=== PATIENT | female | born 2000 ===

== ENCOUNTER 2025-05-15 10:04 | Emergency (ER) | payer OTHER, SELFPAY ==
--- NOTE | ~2025-05-15 | XR_ITS ---
EXAMINATION: XR FOOT, RIGHT CLINICAL INFORMATION: pain, fall COMPARISON: None available. TECHNIQUE: AP, lateral, and oblique views of the right foot. FINDINGS: On the oblique view, avulsion fracture of the dorsal to the head neck junction is demonstrated. No other abnormalities are evident. XR/XR foot RT min 3V IMPRESSION: Dorsal talonavicular ligament avulsion fracture involving dorsal to the head neck junction. Electronically signed by: Martinez Orourke MD 05/15/2025 11:40 AM EDT
--- NOTE | ~2025-05-15 | XR_ITS ---
EXAMINATION: XR ANKLE, right CLINICAL INFORMATION: Right ankle pain, fall down stairs one day ago COMPARISON: None available. TECHNIQUE: AP, lateral, and mortise views lower extremity joint, ankle. FINDINGS: Ankle mortise is congruent. There is no widening of the syndesmosis. Talar dome is intact. There are no calcaneal enthesophytes. Small linear avulsion fracture is noted involving the dorsal and neck junction of talus. XR/XR ankle RT min 3V IMPRESSION: Midtarsal/Chopart joint sprain. Small avulsion fracture is noted involving the talar footprint of the dorsal talonavicular ligament. Electronically signed by: Martinez Orourke MD 05/15/2025 11:38 AM EDT
[2025-05-15 10:48] VITALS: BP 113/77; PULSE 95; RESP 16; TEMP 36.4; O2SAT 100; BMI 29.3
--- NOTE | 2025-05-15 10:52 | ED_ITS ---
HPI - Extremity Injury (Lower) General Chief Complaint: Extremity Injury, Lower Stated Complaint: Pt states foot might be broken Time Seen by Provider: 05/15/25 11:44 Source: patient Mode of arrival: wheelchair Limitations: no limitations History of Present Illness ED Provider: Yareli Stanley PA-C HPI Narrative: Patient is a 25 year old assigned female at with no reported medical hi story presenting to the emergency department today with right ankle pain. Patient states that last night she fell down a couple of steps and has had right ankle pain since. Patient denies any dizziness, lightheadedness, abdominal pain, nausea, vomiting, fever, chills, blurry vision, double vision, loss of vision, chest pain, difficulty breathing, shortness of breath, back pain, night sweats, pain with urination, increased urinary frequency, increased urinary urgency, blood in her urine or stool, syncope or a near syncopal episode, bowel incontinence, bladder incontinence, or any other complaints at this time. Related Data Allergies Allergy/AdvReac Type Severity Reaction Status Date / Time No Known Allergies Allergy Verified 05/15/25 10:50 Review of Systems Constitutional: Constitutional: Reports no additional constitutional complaints, Denies chills, Denies fever(s) and Denies night sweats Eyes: Eyes: Reports no additional eye complaints, Denies blurry vision, Denies change in vision, Denies diplopia, Denies eye discharge, Denies loss of vision and Denies eye pain ENT: Denies dizziness Cardiovascular: Cardiovascular: Reports no additional cardiovascular complaints, Denies chest pain, Denies lightheadedness, Denies Loss of Consciousness and Denies dyspnea Respiratory: Respiratory: Reports no additional respiratory complaints and Denies dyspnea Gastrointestinal: Gastrointestinal: Reports no additional gastrointestinal complaints, Denies abdominal pain, Denies melena, Denies hematochezia, Denies change in bowel habits and Denies change in stool character Genitourinary: Genitourinary: Denies hematuria, Denies urinary frequency, Denies dysuria, Denies urinary incontinence, Denies urinary hesitancy and Denies urinary urgency Musculoskeletal: Musculoskeletal: Reports no additional musculoskeletal complaints, Denies numbness and Denies tingling Comments: Right ankle pain Neurologic: Denies dizziness, Denies loss of vision, Denies numbness and Denies tingling Psychiatric: Psychiatric: Reports no additional psychiatric complaints Endocrine: Endocrine: Reports no additional endocrine complaints Hematologic/Lymphatic: Hematologic/Lymphatic: Reports no additional hematologic/lymphatic complaints Allergic/Immunologic: Allergic/Immunologic: Reports no additional allergic/immunologic complaints PMFSH Past Medical History Attestation statement: The following information was validated with the patient. Source: old records reviewed and nursing notes reviewed Social History Social History Advance Directives: No Advance Directives Information Provided: Yes Physical Exam Vital Signs: Vital Signs: Last Vital Signs Temp 97.6 F 05/15/25 10:48 Pulse 95 05/15/25 10:48 Resp 16 05/15/25 10:48 BP 113/77 05/15/25 10:48 Pulse Ox 100 05/15/25 10:48 O2 Del Method Room Air 05/15/25 10:48 BMI result Body Mass Index 29.3 Const: General: cooperative, no acute distress, alert and awake Nutritional Appearance: well nourished Orientation/consciousness: patient oriented x3 HEENT: Head: Yes normal to inspection and Yes atraumatic Ears: hearing grossly normal bilaterally and external ears normal General nose exam: Normal external nose present, no nasal discharge noted and no epistaxis Face and sinus: Yes normal facial exam, No abrasion and No laceration Mouth: Normal oral and palatal mucosa present, no drooling and no muffled voice Eyes: General: appearance normal, both eyes and all related structures Periorbital: periorbital findings normal Eyelids: Yes eyelids normal Conjunctivae: conjunctivae normal Pupils: Equal, round and reactive pupils present EOM: EOMs intact bilaterally Neck: Neck: Yes normal visual inspection, Yes full ROM and Yes no lymphadenopathy Resp: Effort & Inspection: normal respiratory effort and able to speak in complete sentences Neuro: General: patient oriented x3, moves all extremities and CN's II-XI intact bilaterally Cranial nerves: Yes Equal, round and reactive pupils present Cognition (Neuro): normal cognition Extrem: Other: Pain with right ankle ROM Pain with palpation of the dorsal aspect of the right ankle joint General: Yes normal to inspection, Yes full ROM and Yes capillary refill normal Psych: Appearance: grossly normal Mental Status: mental status grossly normal Affect: normal affect Attitude: cooperative Thought process: Normal thought process present Thought content: Normal thought content present Insight: Good insight present (Psych) Course Course Course Narrative: 25 yo female with no sig PMH here with c/o R foot and ankle injury s/p fall while drinking last night - no LOC and no other injuries. No prior injury to RLE in past. Has isolated pain to R ankle/foot. No numbness. Cannot bear weight. Xrays of R ankle/foot. NV intact this is a RAPID medical screening exam the rest of the history and physical exam is to be done by the main provider. SUZANNE 05/15/25 1053am Medical Decision Making Medical Decision Making [facility] Narrative: Patient is a 25 year old assigned female at with no reported medical history presenting to the emergency department today with right ankle pain. Patient's physical exam was as noted in the physical exam portion of this note. Patient's right ankle x-ray showed a midtarsal / chopart joint sprain with a small avulsion fracture involving the talar footprint of the dorsal talonavicular ligament. I spoke with the orthopedic team who confirmed having the patient placed in a tall walking boot and following up on an outpatient basis with the orthopedic team. I explained my physical exam findings as well as all test results to the patient. I answered all questions asked by the patient. Patient's right ankle/foot was placed in a tall walking boot, without incident. Patient's PMS was intact prior to and after boot placement. Patient attempted to stand and had difficulty applying weight to the right lower extremity - so she was given crutches with crutch instructions and was able to demonstrate appropriate use of them while in the department. I stressed the importance of the patient taking her medication as directed (either prescribed or as the over the counter packaging recommends). I stressed the importance of the patient following up with her primary care provider and the orthopedic team. I stressed the importance of the patient returning to the emergency department immediately if her symptoms were to worsen or if she were to develop any dizziness, shortness of breath, difficulty breathing, chest pain, blurry vision, loss of vision, nausea, vomiting, abdominal pain, fever, chills, back pain, or any other complaints. Patient verbalized agreement and understanding with this treatment plan and discharge. Note: Patient was offered IM Toradol while in the department for pain and declined. Differential Diagnosis Differential Diagnoses: The differential diagnosis associated with the presentation includes Right ankle fracture Right ankle sprain Right ankle strain Admission/Observation Consideration of admission/observation: Escalation of care including admission/observation considered Patient would have been admitted to the hospital had her work up had any findings where hospital admission was appropriate and her clinical presentation warranted hospital admission. Consult Healthcare Provider Management of the patient was discussed with: Boat Loader Helper (I spoke with the orthopedic team as noted in the MDM Rationale portion of this note. ) Independent Interpretation I performed an independent interpretation of an: Plain X-Ray Interpretation: My interpretation is in agreement with the radiologist's impression of these imaging studies. EXAMINATION: XR ANKLE, right CLINICAL INFORMATION: Right ankle pain, fall down stairs one day ago COMPARISON: None available. TECHNIQUE: AP, lateral, and mortise views lower extremity joint, ankle. FINDINGS: Ankle mortise is congruent. There is no widening of the syndesmosis. Talar dome is intact. There are no calcaneal enthesophytes. Small linear avulsion fracture is noted involving the dorsal and neck junction of talus. XR/XR ankle RT min 3V IMPRESSION: Midtarsal/Chopart joint sprain. Small avulsion fracture is noted involving the talar footprint of the dorsal talonavicular ligament. Electronically signed by: Martinez Orourke MD 05/15/2025 11:38 AM EDT Dictated By: Martinez Orourke MD Signed By: Electronically signed by Martinez Orourke MD 05/15/25 1138 EXAMINATION: XR FOOT, RIGHT CLINICAL INFORMATION: pain, fall COMPARISON: None available. TECHNIQUE: AP, lateral, and oblique views of the right foot. FINDINGS: On the oblique view, avulsion fracture of the dorsal to the head neck junction is demonstrated. No other abnormalities are evident. XR/XR foot RT min 3V IMPRESSION: Dorsal talonavicular ligament avulsion fracture involving dorsal to the head neck junction. Electronically signed by: Martinez Orourke MD 05/15/2025 11:40 AM EDT RP Dictated By: Mratinez Orourke MD Signed By: Electronically signed by Martinez Orourke MD 05/15/25 1140 Radiology Impression Discussion of test interpretation with radiology: I have reviewed the radiologist's reading. Procedures Orthopedic Splinting/Casting Injury #1: Side: right Lower Extremity Injury Location: ankle Lower Extremity Immobilizer: boot orthosis Critical Care Time Critical Care Time Critical Care Time: Yes Total Critical Care Time: 32 Attestation: I spent 32 minutes of Critical Care Time with this patient. This does not inc lude time spent on separately reported billable procedures. Discharge Plan Discharge Clinical Impression: Avulsion fracture Sprain of ankle Qualifiers: Encounter type: initial encounter Involved ligament of ankle: anterior talofi bular ligament Laterality: right Qualified Code(s): S93.491A - Sprain of other ligament of right ankle, initial encounter Patient Disposition: Home, Self-Care Instructions: Ankle Fracture (DC), Ankle Sprain (DC), Walking Boot (ED) Additional Instructions: Your x-ray of the ankle showed a midtarsal/chopart joint sprain with a small avulsion fracture (break) of the talar footprint of the dorsal talonavicular ligament. Wear the walking boot when ambulating. Follow up with your primary care provider and the orthopedic team. Take tylenol + ibuprofen over the counter for pain. Be sure to elevate the extremity to keep swelling down. Follow up with a primary care provider. Return to the emergency department immediately if your symptoms worsen or if you develop any numbness, tingling, dizziness, shortness of breath, difficulty breathing, chest pain, blurry vision, loss of vision, nausea, vomiting, abdominal pain, fever, chills, back pain, or any other complaints. If you do not have a primary care provider - call any of the below numbers to establish and follow up with a primary care provider. [facility] Primary Care ([place]) [phone] [place] [address], [address] [facility] Primary Care ([address] [place]) [phone] [address] [facility], [address] [facility], [address] [facility] Primary Care ([address] [place]) [phone] [place] [address], [address] [facility], [address] [facility] Primary Care ([place]) [phone] [place] [address] [address] [facility], [address] [facility] Family Medicine [phone] [facility], [address] Please see the information below about our Patient Portal. If you are not yet enrolled in the [facility] Patient Portal, you will receive an enrollment email invitation following your visit to any [facility] setting. You may also self-enroll in the Patient Portal by visiting our website: [email or web address] The following information is required to access the Patient Portal: - Your [facility] Medical Record Number - Your personal home email address (must match what is in your electronic medical record, Registration staff can assist with this) - Name - Date of Capabilities of the Patient Portal: - Message some providers - View upcoming appointments - Access your health summary, medical history, and visit history - View current conditions and allergies - View procedure and lab results - View your medications, including guidelines, side effects, and precautions - Complete pre-appointment questionnaires requested by your provider - Ready summary reports of your office visits and procedures To access the Patient Portal Mobile [employer]ahlia, follow these directions: - Search [employer] in the Dahlia Store or Google Play Store - Download the Dahlia - Search for [facility] - Enter your login/password Referrals: [facility] Orthopedic Surgeons [Provider Group] Referral Note: Call to establish and follow up with the orthopedic team. Stand Alone Forms: Work/School Release Discharge Date/Time: 05/15/25 12:21 Print Language: Dutch
--- NOTE | 2025-05-15 12:01 | PC.NURSE ---
PT WAS SEEN BY PIT AND PLACED IN A TALL BOOT SPLINT AND FITTED FOR CRUTCHES
--- OUTSIDE RECORDS SUMMARY | 2025-05-15 12:42 | XMS_ITS | Encounter Summary ---
Author Organization [facility] Address [address] [place] [address] Phone Care Team Providers Care Med Peds Name Role Phone Lawanda Farris NP Primary Care Provider Jorge Luis Lamb MD Unavailable [phone] Jorge Luis Lamb MD Unavailable [phone] Sandeep Pierre MD Primary Care Provider [phone] Encounter Details Date Type Department Care Team (Late st Contact Info) Description 09/12/2022 Procedure Pass [address] [place] [address] Social History Tobacco Use Types Packs/Day Years Used Date Smoking Tobacco: Never Assessed Comments Unknown Sex and Gender Information Value Date Recorded Sex Assigned at Not on file Legal Sex Female 8:45 PM EDT Gender Identity Not on file Sexual Orientation Not on file documented as of this encounter Last Filed Vital Signs Vital Sign Reading Time Taken Comments Blood Pressure - - Pulse - - Temperature - - Respiratory Rate - - Oxygen Saturation - - Inhaled Oxygen Concentration - - Weight 63.5 kg (140 lb) 09/14/2022 2:50 PM EST Height 152.4 cm (5') 09/14/2022 2:50 PM EST Body Mass Index 27.34 09/14/2022 2:50 PM EST documented in this encounter Plan of Treatment Not on file documented as of this encounter Visit Diagnoses Not on filedocumented in this encounter Additional Health Concerns Infection Onset Date Last Indicated Resolved Time COVID-19 04/05/2025 04/05/2025 04/26/2025 1:23 AM EDT documented as of this encounter Care Teams Med Peds Relationship Specialty Start Date End Date Lawanda Farris NP [address] [place] [phone] PCP - General Family Medicine 09/11/22 04/04/25 Sandeep Pierre MD [address] [place] [phone] [email or web address] PCP - General Internal Medicine 04/05/25 Jorge Luis Lamb MD [address] [place] [phone] Insurance Assigned Provider 10/18/22 11/15/22 Jorge Luis Lamb MD [address] [place] [phone] [email or web address] Insurance Assigned Provider Family Medicine 02/25/23 documented as of this encounter Additional Source Comments The information contained in this document represents components of the legal health record. It is not the complete legal health record.[facility]
== END 2025-05-15 12:21 | disposition home or self-care (01) ==
PROVIDERS: Emergency Provider Emergency Medicine
DX: S82.891A Other fracture of right lower leg, initial encounter for closed fracture (principal); M25.571 Pain in right ankle and joints of right foot; X58.XXXA Exposure to other specified factors, initial encounter; Y93.9 Activity, unspecified; Y92.9 Unspecified place or not applicable; Y99.9 Unspecified external cause status
CPT/HCPCS: 29515; 73610; 73630; 99281; 99291

== ENCOUNTER → 2025-05-15 10:50 | Outpatient (BNV) | payer OTHER, SELFPAY | PROVIDERS: Emergency Provider Emergency Medicine; Visit Provider Radiology Diagnostic Radiology | DX: S92.151A Displaced avulsion fracture (chip fracture) of right talus, initial encounter for closed fracture (principal); W10.8XXA Fall (on) (from) other stairs and steps, initial encounter | CPT/HCPCS: 73610; 73630 ==

== ENCOUNTER 2025-05-30 09:12 | Outpatient (REF) | payer OTHER, SELFPAY ==
--- NOTE | ~2025-05-30 | XR_ITS ---
EXAMINATION: XR ANKLE, right CLINICAL INFORMATION: M25.579 - Pain in unspecified ankle and joints of unspecified foot , follow-up avulsion fracture COMPARISON: May 15, 2025 TECHNIQUE: AP, lateral, and mortise views lower extremity joint, ankle. FINDINGS: Again seen is cortical avulsion involving the dorsal neck of talus which appears more linear and increasing density when compared to the prior examination. Ankle mortise is congruent. There is no widening of the syndesmosis. Talar dome is intact. There are no calcaneal enthesophytes. XR/XR ankle RT min 3V IMPRESSION: Normal evolution of an avulsion fracture involving dorsal cortex of the talar neck. Electronically signed by: Martinez Orourke MD 05/30/2025 02:10 PM EDT
== END 2025-05-30 09:13 | disposition home or self-care (01) ==
LOC: HO.HOSX 09:12
PROVIDERS: Visit Provider Physician Assistant
DX: S92.151D Displaced avulsion fracture (chip fracture) of right talus, subsequent encounter for fracture with routine healing (principal); M25.571 Pain in right ankle and joints of right foot; W10.8XXD Fall (on) (from) other stairs and steps, subsequent encounter
CPT/HCPCS: 73610; 99202

== ENCOUNTER 2025-05-30 13:47 | Outpatient (AMB) | payer OTHER, SELFPAY ==
--- NOTE | 2025-05-30 13:55 | MHC.OFFVIS ---
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 Patient reports fell down a couple of steps and her ankle went out wards. Patient reports she heard a snap in her ankle. Patient mentions that day after the injury her toes where numb and could move them. She was seen at the ED were they gave her tall walking boot. Patient mentions she is feeling a bit better. 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 Patient is on her feet for more than 8 + hours a day. IMPRESSIONS: Midtarsal/Chopart joint sprain. Small avulsion fracture is noted involving the talar footprint of the dorsal talonavicular ligament. 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 Pearce is 25 year old female who presents to the office today for evaluation of a right foot/ankle injury that she sustained on 05/14/2025. She reports that she fell down a few steps and sustained an eversion injury to the ankle. She reports hearing a snapping sound at the time of injury. She was seen in the emergency department where x-rays were obtained and she was found to have a small avulsion fracture off of the talar neck. They provided her with a tall walking boot and instructed that she could weightbear as tolerated. Pain has been gradually improving. 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 Mild edema located over the plantar aspect of the foot. Able to perform dorsiflexion, plantar flexion, pronation and supination without difficulty. Sensation intact. Pedal pulse intact. Psych Appearance: grossly normal Mental Status: mental status grossly normal Attitude: cooperative Assessment & Plan Assessment & Plan (1) Avulsion fracture: Comment: Avulsion fracture involving the dorsal cortex of the talar neck Code(s): T14.8XXA - Other injury of unspecified body region, initial encounter Category: Medical Plan Ms. Pearce is 25 year old female who presents to the office today for evaluation of a right foot/ankle injury that she sustained on 05/14/2025. She reports that she fell down a few steps and sustained an eversion injury to the ankle. She reports hearing a snapping sound at the time of injury. She was seen in the emergency department where x-rays were obtained and she was found to have a small avulsion fracture off of the talar neck. They provided her with a tall walking boot and instructed that she could weightbear as tolerated. Pain has been gradually improving. 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 While in the office today, the patient is not experiencing much discomfort. Therefore, I have recommended she transition to a normal walking shoe that is supportive. She can return back to work full-time regular duty. She will follow up with Orthopedics p.r.n., sooner if needed. X-rays of the right ankle which were obtained while in the office today and were reviewed by me, Terri Luciano PA-C, revealed routine healing avulsion fracture of the distal cortex of the talar neck. Orders: Orders XR ankle RT min 3V 05/30/25 M25.579 - Pain in unspecified ankle and joints of unspecified foot Coding Level of Care Code New Pt Level 3 (57315) Diagnoses Avulsion fracture T14.8XXA
[2025-05-30 14:16] VITALS: BMI 29.3
--- OUTSIDE RECORDS SUMMARY | 2025-05-30 15:04 | XMS_ITS | Encounter Summary ---
Author Organization [facility] Address [address] [place] [address] Phone Care Team Providers Care Teacher Physically Impaired Name Role Phone Lawanda Farris NP Primary Care Provider Jorge Luis Lamb MD Unavailable [phone] Jorge Luis Lamb MD Unavailable [phone] Sandeep Pierre MD Primary Care Provider [phone] Encounter Details Date Type Department Care Team (Late st Contact Info) Description 09/12/2022 Procedure Pass [address] [place] [address] Social History Tobacco Use Types Packs/Day Years [...] documented as of this encounter Care Teams Teacher Physically Impaired Relationship Specialty Start Date End Date Lawanda Farris NP [address] [place] [phone] PCP - General Family Medicine 09/11/22 04/04/25 Sandeep Pierre MD [address] [place] [phone] [email or web address] PCP - General Internal Medicine 04/05/25 Jorge Luis Lamb MD [address] [place] [phone] Insurance Assigned Provider 10/18/22 11/15/22 Jorge Luis Lamb MD [address] [place] [phone] [email or web address] Insurance Assigned Provider Family Medicine 02/25/23 documented as of this encounter Additional Source Comments The information contained in this document represents components of the legal health record. It is not the complete legal health record.[facility]
== END 2025-05-30 14:55 | disposition home or self-care (01) ==
LOC: HO.HOS 13:47
PROVIDERS: PCP Internal Medicine; Visit Provider Physician Assistant
DX: T14.8XXA Other injury of unspecified body region, initial encounter (principal)
CPT/HCPCS: 99203

== ENCOUNTER → 2025-05-30 13:50 | Outpatient (BNV) | payer OTHER, SELFPAY | PROVIDERS: Visit Provider Radiology Diagnostic Radiology | DX: M25.571 Pain in right ankle and joints of right foot (principal); S82.891D Other fracture of right lower leg, subsequent encounter for closed fracture with routine healing | CPT/HCPCS: 73610 ==